=== PATIENT | male | born 1990 | race African-American/Black ===

== ENCOUNTER 2021-02-06 10:04 | Emergency (ER) | payer SELFPAY ==
[~2021-02-06] VITALS: Ht 170.2 cm; Wt 98.2 kg
[2021-02-06] MEDS ORDERED: TESSALON PERLE100 MG PO (10:51)
[2021-02-06] MEDS ORDERED: ZITHROMAX250 MG PO (10:51)
== END 2021-02-06 10:56 | disposition home or self-care (01) ==
LOC: FSED 10:29
DX: R05.9 Cough, unspecified (principal); J20.9 Acute bronchitis, unspecified; F17.210 Nicotine dependence, cigarettes, uncomplicated
CPT/HCPCS: 99283